=== PATIENT | female | born 1980 | race Caucasian/White ===

== ENCOUNTER → 2018-09-28 | Outpatient (CLI) | payer BC | LOC: M.RAD 14:14 | DX: D72.829 Elevated white blood cell count, unspecified (principal) ==

== ENCOUNTER → 2021-09-20 | Outpatient (CLI) | payer BC ==
[~2021-09-20] MED LIST: ACETAMINOPHEN325 M1 PO; IBUPROFEN 400400 M1 PO; MEDROLDOSEPACK PO; MOBIC15 MG PO; PREGABALIN75 MG; PROVIGIL 200 M200 MG PO
== END ==
LOC: M.PC 10:18
PROVIDERS: ATTEND Anesthesiology Pain Medicine
DX: M47.22 Other spondylosis with radiculopathy, cervical region (principal); J45.909 Unspecified asthma, uncomplicated; N64.4 Mastodynia; J30.89 Other allergic rhinitis; R51.9 Headache, unspecified; R09.1 Pleurisy; R00.2 Palpitations; Z79.899 Other long term (current) drug therapy; Z90.710 Acquired absence of both cervix and uterus